=== PATIENT | female | born 1960 | race Caucasian/White ===

== ENCOUNTER 2020-10-03 19:27 | Observation (INO) | payer BC ==
[2020-10-03] MEDS ORDERED: SODIUM CHLORIDE 0.9% 1,000 ML IV STA ×3 (20:08→22:57)
--- NOTE | 2020-10-03 20:19 | ED ---
General Adult HPI - General Chief complaint: Weakness Stated complaint: Weakness Time Seen by Provider: 10/03/20 19:58 Source: patient Mode of arrival: EMS Limitations: no limitations - History of Present Illness Initial comments: This 60-year-old female presents via EMS and sisters present. She apparently had an episode at home a couple hours prior to arrival where she was having altered mental status. She apparently felt very weak and could not stand. She was having some twitching of her left side of her body. Her blood sugar apparently was in the 40s. EMS. She receives some dextrose. Her symptoms have improved at this point time. She stills feels slightly weak. She relates that she has not been eating or drinking fluids much due to her depression. She normally lives in [place] and has been in [place] for the past 3 weeks and [facility] for the past 2 days. She states that the altered atmospheres seems to affect her depression. She denies any severe depression to the point that she is suicidal. She is quite ambiguous in just about every question I ask her and repetitive questioning for the same topic is done continuously with continued ambiguous answering. She relates that she drinks 2-3 glasses of wine 3 days a week. Upon leaving the room, the sister comes up to me and states that she does have a history of a drinking problem and there is empty bottle of vodka in the room when family presented today. Patient denies any drug use. She denies any other medical conditions other than depression. She states that she has had 2 previous episodes where she felt very weak. She only takes an antidepressant medication but denies any other medications. No other identifiable complaints or modifying factors. Patient denies any chest pain, shortness breath, fevers, or chills. - Related Data Home Medications Medication Instructions Recorded Confirmed Citalopram Hydrobromide [CeleXA] 20 mg PO HS 10/03/20 10/03/20 Allergies Allergy/AdvReac Type Severity Reaction Status Date / Time hydrocortisone AdvReac Swelling Verified 10/03/20 21:53 Review of Systems ROS Statement: Those systems with pertinent positive or pertinent negative responses have been documented in the HPI. ROS Other: All systems not noted in ROS Statement are negative. Past Medical History Past Medical History: Asthma, Hypertension, Pneumonia History of Any Multi-Drug Resistant Organisms: None Reported Past Surgical History: Bariatric Surgery Past Psychological History: ADD/ADHD, Anxiety, Depression, PTSD Smoking Status: Former smoker Past Alcohol Use History: Occasional Past Drug Use History: Marijuana General Exam - General Exam Comments Initial Comments: GENERAL: The patient is well nourished and well hydrated. VITAL SIGNS: Heart rate, blood pressure, respiratory rate reviewed as recorded in nurse's notes. EYES: Pupils are round and reactive. Extraocular movements are intact. No conjunctival / lid redness or swelling. ENT: No external evidence of injury, swelling, or ecchymosis. Airway is patent. Throat is clear. NECK: Nontender. No swelling or evidence of injury. No subcutaneous emphysema. Trachea is midline. No thyroid mass. HEART: Regular rate and rhythm. Good peripheral pulses. LUNGS/CHEST: Breath sounds clear and equal bilaterally. No rales, rhonchi, or wheezes. No ecchymosis, subcutaneous emphysema, or tenderness. ABDOMEN: Abdomen soft without tenderness. No palpable masses or organomegaly. No peritoneal signs. No abdominal wall swelling or ecchymosis. EXTREMITIES: No extremity tenderness. Normal muscle tone and function. No thoracolumbar tenderness. NEUROLOGIC: Sensation is grossly intact. Cranial nerve exam reveals face is symmetrical, tongue is midline, speech is clear. SKIN: No abrasions or ecchymosis is noted. No induration or masses noted. PSYCHIATRIC: Alert and oriented. Slight flat affect, somewhat bizarre behavior. Limitations: no limitations Course Vital Signs 10/03/20 10/03/20 19:33 22:55 Temperature 98.8 F Pulse Rate 88 88 Respiratory 18 18 Rate Blood Pressure 122/52 135/80 O2 Sat by Pulse 100 98 Oximetry Medical Decision Making - Medical Decision Making The patient was seen and examined. All diagnostics are reviewed. EKG shows a normal sinus rhythm. There is some mild T-wave flattening diffusely. The MO intervals 168, QRS duration is 96, and the QTC intervals 457. The patient had a computed tomography scan of her brain which did not show any acute abnormalities. Laboratory shows a significant decrease in CO2 at 13. Alcohol is also elevated at 160. There is no definite urinary tract infection. Remainder of labs are unremarkable. It is felt as though she does have acute intoxication. She also has not been eating much and has dehydration. It is felt as though she would benefit from admission and further hydration. She is counseled regarding alcohol use versus abuse as well. She is agreeable to admission. Case is discussed with Dr. Jackson who is agreeable as well. She became nauseated in the ER and receives some Zofran with relief. - Lab Data Result diagrams: 10/03/20 20:46 10/03/20 20:46 Lab Results 10/03/20 10/03/20 10/03/20 Range/Units 20:46 20:46 20:46 WBC 12.2 H (3.8-10.6) k/uL RBC 4.15 (3.80-5.40) m/uL Hgb 15.1 (11.4-16.0) gm/dL Hct 47.0 H (34.0-46.0) % MCV 113.1 H (80.0-100.0) fL MCH 36.4 H (25.0-35.0) pg MCHC 32.2 (31.0-37.0) g/dL RDW 12.5 (11.5-15.5) % Plt Count 321 (150-450) k/uL MPV 8.8 Neutrophils % 88 % Lymphocytes % 7 % Monocytes % 4 % Eosinophils % 0 % Basophils % 0 % Neutrophils # 10.8 H (1.3-7.7) k/uL Lymphocytes # 0.9 L (1.0-4.8) k/uL Monocytes # 0.4 (0-1.0) k/uL Eosinophils # 0.0 (0-0.7) k/uL Basophils # 0.0 (0-0.2) k/uL Manual Slide Review Performed Anisocytosis (manual) Present Macrocytosis Marked A PT 10.7 (9.0-12.0) sec INR 1.0 (<1.2) APTT 18.2 L (22.0-30.0) sec Sodium (137-145) mmol/L Potassium (3.5-5.1) mmol/L Chloride (98-107) mmol/L Carbon Dioxide (22-30) mmol/L Anion Gap mmol/L BUN (7-17) mg/dL Creatinine (0.52-1.04) mg/dL Est GFR (CKD-EPI)AfAm (>60 ml/min/1.73 sqM) Est GFR (CKD-EPI)NonAf (>60 ml/min/1.73 sqM) Glucose (74-99) mg/dL POC Glucose (mg/dL) (75-99) mg/dL POC Glu Plate Grainer ID Calcium (8.4-10.2) mg/dL Phosphorus (2.5-4.5) mg/dL Magnesium (1.6-2.3) mg/dL Total Bilirubin (0.2-1.3) mg/dL AST (14-36) U/L ALT (4-34) U/L Alkaline Phosphatase (38-126) U/L Troponin I (0.000-0.034) ng/mL Total Protein (6.3-8.2) g/dL Albumin (3.5-5.0) g/dL TSH (0.465-4.680) mIU/L Urine Color Yellow Urine Appearance Cloudy H (Clear) Urine pH 5.0 (5.0-8.0) Ur Specific [place] 1.014 (1.001-1.035) Urine Protein Trace H (Negative) Urine Glucose (UA) Negative (Negative) Urine Ketones 3+ H (Negative) Urine Blood Negative (Negative) Urine Nitrite Negative (Negative) Urine Bilirubin Negative (Negative) Urine Urobilinogen <2.0 (<2.0) mg/dL Ur Leukocyte Esterase Small H (Negative) Urine RBC 2 (0-5) /hpf Urine WBC 1 (0-5) /hpf Ur Squamous Epith Cells 20 H (0-4) /hpf Urine Bacteria Rare H (None) /hpf Hyaline Casts 7 H (0-2) /lpf Urine Mucus Few H (None) /hpf Serum Alcohol mg/dL 10/03/20 10/03/20 10/03/20 Range/Units 20:46 20:46 20:54 WBC (3.8-10.6) k/uL RBC (3.80-5.40) m/uL Hgb (11.4-16.0) gm/dL Hct (34.0-46.0) % MCV (80.0-100.0) fL MCH (25.0-35.0) pg MCHC (31.0-37.0) g/dL RDW (11.5-15.5) % Plt Count (150-450) k/uL MPV Neutrophils % % Lymphocytes % % Monocytes % % Eosinophils % % Basophils % % Neutrophils # (1.3-7.7) k/uL Lymphocytes # (1.0-4.8) k/uL Monocytes # (0-1.0) k/uL Eosinophils # (0-0.7) k/uL Basophils # (0-0.2) k/uL Manual Slide Review Anisocytosis (manual) Macrocytosis PT (9.0-12.0) sec INR (<1.2) APTT (22.0-30.0) sec Sodium 143 (137-145) mmol/L Potassium 3.7 (3.5-5.1) mmol/L Chloride 105 (98-107) mmol/L Carbon Dioxide 13 L (22-30) mmol/L Anion Gap 25 mmol/L BUN 7 (7-17) mg/dL Creatinine 0.55 (0.52-1.04) mg/dL Est GFR (CKD-EPI)AfAm >90 (>60 ml/min/1.73 sqM) Est GFR (CKD-EPI)NonAf >90 (>60 ml/min/1.73 sqM) Glucose 128 H (74-99) mg/dL POC Glucose (mg/dL) 120 H (75-99) mg/dL POC Glu Plate Grainer ID Yousuf, Maximo Calcium 8.7 (8.4-10.2) mg/dL Phosphorus 5.2 H (2.5-4.5) mg/dL Magnesium 1.8 (1.6-2.3) mg/dL Total Bilirubin 0.6 (0.2-1.3) mg/dL AST 106 H (14-36) U/L ALT 32 (4-34) U/L Alkaline Phosphatase 108 (38-126) U/L Troponin I <0.012 (0.000-0.034) ng/mL Total Protein 7.0 (6.3-8.2) g/dL Albumin 3.9 (3.5-5.0) g/dL TSH 0.251 L (0.465-4.680) mIU/L Urine Color Urine Appearance (Clear) Urine pH (5.0-8.0) Ur Specific [place] (1.001-1.035) Urine Protein (Negative) Urine Glucose (UA) (Negative) Urine Ketones (Negative) Urine Blood (Negative) Urine Nitrite (Negative) Urine Bilirubin (Negative) Urine Urobilinogen (<2.0) mg/dL Ur Leukocyte Esterase (Negative) Urine RBC (0-5) /hpf Urine WBC (0-5) /hpf Ur Squamous Epith Cells (0-4) /hpf Urine Bacteria (None) /hpf Hyaline Casts (0-2) /lpf Urine Mucus (None) /hpf Serum Alcohol 160 mg/dL Disposition Clinical Impression: Hypoglycemia, Dehydration, Alcohol intoxication, Nausea Disposition: ADMITTED IP TO THIS HOSP Condition: Fair Is patient prescribed a controlled substance at d/c from ED?: No Referrals: None,Stated [Primary Care Provider] - 1-2 days Time of Disposition: 23:15 Decision Date: 10/03/20 Decision Time: 23:15
--- NOTE | 2020-10-03 20:55 | CT ---
EXAMINATION TYPE: CT brain wo con DATE OF EXAM: 10/03/2020 COMPARISON: None HISTORY: Weakness. CT DLP: 1107.4 mGycm Automated exposure control for dose reduction was used. There is mild cerebral atrophy. There is no mass effect nor midline shift. There is no sign of intrac ranial hemorrhage. Calvarium is intact. There is no evidence of cerebral edema. There is normal aerat ion of the mastoid sinuses. IMPRESSION: No acute intracranial abnormality.
[2020-10-03 20:59] LABS: Glucose,Whole Blood 120 mg/dL (75-99)
[2020-10-03 21:25] LABS: ALT 32 U/L (4-34); AST 106 U/L (14-36); African American GFR (CKD) >90 (>60 ml/min/1.73 sqM); Albumin 3.9 g/dL (3.5-5.0); Alkaline Phosphatase 108 U/L (38-126); Anion Gap 25 mmol/L; Blood Urea Nitrogen 7 mg/dL (7-17); Calcium 8.7 mg/dL (8.4-10.2); Carbon Dioxide 13 mmol/L (22-30); Chloride 105 mmol/L (98-107); Glucose 128 mg/dL (74-99); Magnesium 1.8 mg/dL (1.6-2.3); Non-African American GFR(CKD) >90 (>60 ml/min/1.73 sqM); Phosphorus 5.2 mg/dL (2.5-4.5); Potassium 3.7 mmol/L (3.5-5.1); Sodium 143 mmol/L (137-145); Total Bilirubin 0.6 mg/dL (0.2-1.3)
[2020-10-03 21:27] LABS: Appearance,Urine Cloudy (Clear); Bacteria,Urine Rare /hpf; Bilirubin,Urine Negative (Negative); Blood,Urine Negative (Negative); Color,Urine Yellow; Glucose,Urine (UA) Negative (Negative); Hyaline Casts,Urine 7 /lpf (0-2); Ketones,Urine 3+ (Negative); Leukocyte Esterase,Urine Small (Negative); Mucus,Urine Few /hpf; Nitrite,Urine Negative (Negative); Protein,Urine Trace (Negative); RBC,Urine 2 /hpf (0-5); Specific Gravity,Urine 1.014 (1.001-1.035); Squamous Epithelial Cell,Urine 20 /hpf (0-4); Urobilinogen,Urine <2.0 mg/dL (<2.0); WBC,Urine 1 /hpf (0-5)
[2020-10-03 21:28] LABS: Alcohol 160 mg/dL
[2020-10-03 21:32] LABS: Prothrombin Time 10.7 sec (9.0-12.0)
[2020-10-03 22:12] LABS: Basophils % (A) 0 %; Eosinophils % (A) 0 %; HGB 15.1 gm/dL (11.4-16.0); Lymphocytes # (A) 0.9 k/uL (1.0-4.8); Lymphocytes % (A) 7 %; MCH 36.4 pg (25.0-35.0); MCHC 32.2 g/dL (31.0-37.0); MCV 113.1 fL (80.0-100.0); Macrocytosis Marked; Mean Platelet Volume 8.8; Monocytes # (A) 0.4 k/uL (0-1.0); Monocytes % (A) 4 %; Neutrophils # (A) 10.8 k/uL (1.3-7.7); Neutrophils % (A) 88 %; Platelet Count 321 k/uL (150-450); RBC 4.15 m/uL (3.80-5.40); RDW 12.5 % (11.5-15.5); WBC 12.2 k/uL (3.8-10.6)
[2020-10-03 22:15] LABS: Partial Thromboplastin Time 18.2 sec (22.0-30.0)
[2020-10-03] MEDS ORDERED: ONDANSETRON 4 MG/2 ML VIAL IVP STA (22:45)
[2020-10-03 22:56] LABS: Anisocytosis (M) Present
[2020-10-03] MEDS ORDERED: NALOXONE 0.4 MG/ML 1 ML VIAL IV PRN (23:15)
[2020-10-04] MEDS ORDERED: ONDANSETRON 4 MG/2 ML VIAL IVP PRN
[2020-10-04] MEDS ORDERED: ACETAMINOPHEN TAB 325 MG TAB PO PRN
[2020-10-04] MEDS ORDERED: LORazepam 2 MG/ML INJ IV PRN ×3 (00:52)
[2020-10-04] MEDS ORDERED: THIAMINE 100 MG/ML 2 ML VIAL IM STA (00:52)
[2020-10-04 01:33] LABS: Glucose,Whole Blood 154 mg/dL (75-99)
[2020-10-04] MEDS: PANTOPRAZOLE 40 MG/10 ML VIAL IV SCH ×2 (03:12→08:48)
[2020-10-04] MEDS ORDERED: SODIUM CHLORIDE 0.9% 1,000 ML IV SCH (04:15)
[2020-10-04 06:04] LABS: African American GFR (CKD) >90 (>60 ml/min/1.73 sqM); Anion Gap 12 mmol/L; Blood Urea Nitrogen 7 mg/dL (7-17); Calcium 8.1 mg/dL (8.4-10.2); Carbon Dioxide 18 mmol/L (22-30); Chloride 109 mmol/L (98-107); Glucose 77 mg/dL (74-99); Non-African American GFR(CKD) >90 (>60 ml/min/1.73 sqM); Sodium 139 mmol/L (137-145)
[2020-10-04 07:08] LABS: Glucose,Whole Blood 84 mg/dL (75-99)
[2020-10-04 07:54] VITALS: RESP 16
[2020-10-04] MEDS ORDERED: MULTIVITAMINS, THERA 1 EACH TAB PO SCH (09:00)
[2020-10-04] MEDS ORDERED: ENOXAPARIN 40 MG/0.4 ML SYRINGE SQ SCH (09:00)
--- NOTE | 2020-10-04 11:26 | HP ---
HISTORY AND PHYSICAL HISTORY: The patient is a 60-year-old female who apparently had episode prior to arrival where she had some altered mental status. She is very weak with standing. Also had tic on the left side of her body. Blood sugars in the 40s. She was given some dextrose which improved her. She became slightly weak. She states she had not been drinking much due to her depression. She lives in [place], has been in [place] for the past 3 weeks, in [place] for the past 2 days. She has depression. Waiting for suicidal consult at this time. She has a history of a drinking problem with vodka in the morning. Denies any drug abuse. Otherwise she is healthy. Denies chest pain, shortness of breath. MEDICATIONS: Home medicines Celexa 20 daily. ALLERGIES: Negative. REVIEW OF SYSTEMS: A 14 point review of systems otherwise negative. PAST MEDICAL HISTORY: Asthma, hypertension, pneumonia, bariatric surgery, anxiety, depression, ADHD, PTSD, former smoker, occasional alcohol and marijuana. PHYSICAL EXAM: HEENT: Well hydrated. Pupils equal, round, reactive. LUNGS: Clear. CARDIOVASCULAR: S1, S2. HEMATOLOGY: Negative Homans. PSYCH: Flat mood and affect. NEUROLOGIC: Cranial nerves are intact. SKIN: Within normal limits. VITAL SIGNS: Temp 98.8, pulse 80s, respiratory rate 16 to 18, blood pressure 120s to 30s over 80s, O2 of 90 to 100%. EKG shows some mild T-wave flattening. Normal sinus rhythm. CT scan of the brain did not show any acute abnormalities. She had CO2 of 13. Alcohol high at 160. UTI is negative. ASSESSMENT: 1. Acute alcohol intoxication. 2. Depression. PLAN: Psych and neuro consult. [facility] protocol. Resume home medications for depression. Prognosis is guarded. Wait for neuro and psych recommendations for depression and make sure she has no seizures. MMODL / IJN: [id number] /
[2020-10-04 11:41] LABS: Glucose,Whole Blood 144 mg/dL (75-99)
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
--- NOTE | 2020-10-04 15:06 | P.CNNES ---
History of Present Illness Consult date: 10/04/20 Requesting physician: Rodrigo Jackson Reason for Consult: weakness left side History of Present Illness: This is a 60-year-old woman with medical history of hypertension, asthma, depression, anxiety, ADHD, alcohol use who presented emergency department on 10/03/2020 for altered mental status. Some of the history is obtained from ED note. According to the patient that she has been drinking heavily since the COVID- epidemic and try to cut down the 3 different times a in the last 1 year but keeps on rebounding back. She said that she has been binge drinking in the alcohol for the last 3 days, not feeding herself, not hydrating herself. She said that she's been drinking heavily because she was felt depressed. Denies any suicidal or homicidal thoughts or plans. So yesterday as she stated that that she was having generalized weakness and felt her left legs were not support her as a result. She denies of any lower back pain, urinary or bladder incontinence, denies of any focal weakness, any numbness that's localize, visual disturbance, difficulty getting her words out or swallowing. She felt like she had a headache over the left frontal region it was in that again as felt nauseous as well as vomiting. Again she denies any photophobia photophobia with this ringing in the ears or hearing loss. She says that today her headache is 1-2/10. She does have history of migraine and she said that her migraines are controlled she resides in [place]. She feels that the change of whether in the region exacerbates her headache. Per the ED note they mentioned that the patient complained of focal weakness over the left side as well as twitching which she denied to me. EMS was contacted yesterday and the her sugars was in the 40s when they checked and they given dextrose and the she felt much better. Patient resides in [place] and has been in [place] for the last 3 weeks and [place] the last 2 days. She drinks 2-3 glasses of wine 3 days out of the week. Per the ED notes it is mentioned that upon leaving the room the sister came up to the ED physician and stated that the patient has a history of drinking problem and there is empty bottle of vodka in the room when the family presented today. Patient denies off history of stroke, TIAs. Denies history of seizures. She feels like she is depressed because she lost her mother to COVID and loss her friend. Patient home medication is Celexa. Some of the workup in the hospital consisted of: Initial vital signs is blood pressure of 122/52, heart rate of 88, temperature of 98.8 Fahrenheit orally, respiratory of 18, pulse ox of 100% room air. Since the patient has been the hospital she didn't afebrile. CBC with differential is initial white blood cell is 12.2 which is slightly elevated. Patient MCV is 113 hematocrit is 36.4 which are elevated. Chemistry panel is a phosphorus is 5.2 which is mildly elevated. AST of 106 which is elevated and ALT is 32 which is considered within normal limits. Otherwise the calcium is 8.7 and the rest of the basic chemistry panel is within normal limits. 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 CT of the head is reported as no acute intracranial abnormality. EKG is reported as normal sinus rhythm. Nonspecific T wave abnormality. Abnormal EKG. Per the patient's nurse she has not noticed any focal weakness. Review of Systems Review of system: The 12 point system was reviewed and apparent positive and negative per HPI. Past Medical History Past Medical History: Asthma, Hypertension, Pneumonia History of Any Multi-Drug Resistant Organisms: None Reported Past Surgical History: Bariatric Surgery Past Psychological History: ADD/ADHD, Anxiety, Depression, PTSD Smoking Status: Former smoker Past Alcohol Use History: Occasional Additional Past Alcohol Use History / Comment(s): Pt has serum ETOH of 160 upon admission; states she only drinks on the weekends, about 4 drinks Past Drug Use History: Marijuana Additional Drug Use History / Comment(s): States she smokes 1 hit 3-4 days a week for anxiety Medications and Allergies Home Medications Medication Instructions Recorded Confirmed Type Citalopram Hydrobromide [CeleXA] 20 mg PO HS 10/03/20 10/03/20 History Allergies Allergy/AdvReac Type Severity Reaction Status Date / Time hydrocortisone AdvReac Swelling Verified 10/03/20 21:53 Physical Examination - Vital Signs Vital Signs: Vital Signs Temp Pulse Pulse Resp BP BP BP 10/04/20 07:00 98.5 F 98 16 127/75 10/04/20 03:24 18 10/04/20 00:41 97.7 F 18 147/81 10/03/20 22:55 88 18 135/80 10/03/20 19:33 98.8 F 88 18 122/52 Pulse Ox 10/04/20 07:00 97 10/04/20 03:24 10/04/20 00:41 99 10/03/20 22:55 98 10/03/20 19:33 100 Intake and Output 10/03/20 10/04/20 10/04/20 22:59 06:59 14:59 Intake Total 2820 Balance 2820 Intake: Intake, IV Titration 2280 Amount Sodium Chloride 0.9% 1, 130 000 ml @ 130 mls/hr IV . Q7H42M STA Rx#:[id number] Sodium Chloride 0.9% 1, 150 000 ml @ 75 mls/hr IV . [id number] ADRIANNA Rx#:[id number] Sodium Chloride 0.9% 1, 1000 000 ml @ 999 mls/hr IV . Q1H1M STA Rx#:[id number] Sodium Chloride 0.9% 1, 1000 000 ml @ 999 mls/hr IV . Q1H1M STA Rx#:[id number] Oral 540 Other: # Voids 3 Weight 68.946 kg 68.946 kg GENERAL: The patient is lying in bed and is not in acute distress. CHEST: The heart rate is regular rate rhythm. No murmurs to auscultation. No carotid bruit bilaterally. LUNG: Clear to auscultation bilaterally no wheezing noted throughout. Not labored breathing. ABDOMEN/GI: Bowel sounds present in all 4 quadrants. No tenderness to palpation throughout. NEUROLOGICAL: Higher mental function: The patient is awake, alert, oriented to self, place and time. Patient is following commands. No aphasia and no neglect. Cranial nerves: The pupils are round, equal and reactive to light and accommodation. Visual ennis are full to confrontation throughout. Extraocular movement is intact no nystagmus is noted. Facial sensation is normal to touch throughout. The facial strength is normal throughout. Hearing is normal bilaterally to hand rub. Tongue is midline and moved [id number] without any difficulty. No dysarthria is noted. Shoulder shrug is normal bilaterally. Motor: Gait is normal with normal arm swing. The strength is 5 over 5 throu ghout. Normal tone and bulk. Cerebellum: Normal finger to nose heel to garcia bilaterally. Sensation: Sensation is normal to touch throughout. Reflexes (right/left): 2+ throughout. Plantars are downgoing bilaterally. Results - Laboratory Findings CBC and BMP: 10/03/20 20:46 10/04/20 05:03 Abnormal Lab Findings: Abnormal Labs 10/03/20 10/03/20 10/03/20 20:46 20:46 20:46 WBC 12.2 H Hct 47.0 H MCV 113.1 H MCH 36.4 H Neutrophils # 10.8 H Lymphocytes # 0.9 L Macrocytosis Marked A APTT 18.2 L Chloride Carbon Dioxide Creatinine Glucose POC Glucose (mg/dL) Calcium Phosphorus AST TSH Urine Appearance Cloudy H Urine Protein Trace H Urine Ketones 3+ H Ur Leukocyte Esterase Small H Ur Squamous Epith Cells 20 H Urine Bacteria Rare H Hyaline Casts 7 H Urine Mucus Few H 10/03/20 10/03/20 10/04/20 20:46 20:54 01:32 WBC Hct MCV MCH Neutrophils # Lymphocytes # Macrocytosis APTT Chloride Carbon Dioxide 13 L Creatinine Glucose 128 H POC Glucose (mg/dL) 120 H 154 H Calcium Phosphorus 5.2 H AST 106 H TSH 0.251 L Urine Appearance Urine Protein Urine Ketones Ur Leukocyte Esterase Ur Squamous Epith Cells Urine Bacteria Hyaline Casts Urine Mucus 10/04/20 10/04/20 05:03 11:39 WBC Hct MCV MCH Neutrophils # Lymphocytes # Macrocytosis APTT Chloride 109 H Carbon Dioxide 18 L Creatinine 0.48 L Glucose POC Glucose (mg/dL) 144 H Calcium 8.1 L Phosphorus AST TSH Urine Appearance Urine Protein Urine Ketones Ur Leukocyte Esterase Ur Squamous Epith Cells Urine Bacteria Hyaline Casts Urine Mucus Assessment and Plan Assessment: Altered mental status seems due to toxic encephalopathy (alcohol level of 160). Also component metabolic encephalopathy ---mentation improves Generalized weakness due to alcohol intoxication, low sugar (40) due to malnutrition. Denies focal weakness or twitching to me. Her symptoms resolved after getting dextrose.---on examination has no focality. Alcohol use (binge drinking for the past 3 days) Depression History of Hypertension Anxiety Plan: Continue Thiamine 100mg 1 tab bid. Recommend getting the free T4 and we'll defer the thyroid abnormality to the primary team. On [facility] protocol and will defer management to primary team. Psychiatry team is consulted. She was notified if she has any focal weakness or numbness to come to the ED and follow-up with a neurologist as an outpatient. She was counseled on alcohol cessation. We'll defer the rest of medical management to primary team. Patient wants to leave home. From a neurological perspective there is no further workup needed. Thank you for the consultation. Rafa Manzanares MD Neuro-Hospitalist Time with Patient: Greater than 30
[2020-10-04 15:09] VITALS: BP 157/82; PULSE 90; TEMP 98.6
[2020-10-04] MEDS ORDERED: THIAMINE 100 MG TAB PO SCH (17:30)
[2020-10-04] MEDS ORDERED: MIRTAZAPINE 15 MG TAB PO SCH (21:00)
[2020-10-04] MEDS ORDERED: CITALOPRAM HYDROBROMIDE 20 MG TAB PO SCH (21:00)
--- NOTE | 2020-10-22 19:55 | DS ---
DISCHARGE SUMMARY DATE OF ADMISSION: 10/03/2020 DATE OF DISCHARGE: October 04, 2020. MEDICINES: Celexa 20 mg daily. Remeron 50 mg daily. The patient came in the hospital for weakness on the left side. History of hypertension, asthma, depression, anxiety, ADHD, alcohol use, came with alcohol withdrawal. Placed on CIWA protocol. Seen by Psychiatry as well as Neurology. Labs were reviewed. Neurology and psychiatry saw her and placed her on CIWA protocol at which time she improved from medical standpoint. She had toxic encephalopathy due to alcohol level 160, metabolic encephalopathy with mentation improved, depression, hypertension, anxiety, stabilized to follow up as an outpatient. Cleared by neurology and psych on discharge. MMODL / IJN: [id number] /
== END 2020-10-04 17:33 | disposition home or self-care (01) ==
LOC: EC 19:27 → 6NMEDSUR 23:15
PROVIDERS: ADMIT Family Medicine; ATTEND Family Medicine
DX: F10.129 Alcohol abuse with intoxication, unspecified (principal); F32.9 Major depressive disorder, single episode, unspecified; E86.0 Dehydration; E16.2 Hypoglycemia, unspecified; R25.3 Fasciculation; Z20.822 Contact with and (suspected) exposure to COVID-19; I10 Essential (primary) hypertension; J45.909 Unspecified asthma, uncomplicated; F43.10 Post-traumatic stress disorder, unspecified; Y90.6 Blood alcohol level of 120-199 mg/100 ml; F12.90 Cannabis use, unspecified, uncomplicated; F90.9 Attention-deficit hyperactivity disorder, unspecified type; Z88.8 Allergy status to other drugs, medicaments and biological substances; Z86.69 Personal history of other diseases of the nervous system and sense organs; Z87.01 Personal history of pneumonia (recurrent); Z87.891 Personal history of nicotine dependence; Z98.84 Bariatric surgery status
CPT/HCPCS: 96376; 96372; 96375; 96361; 96374; 99285; 36415; 93005; 80053; 80048; 83735; 84100; 84443; 84484; 85025; 85610; 85730; 81001; 80320; 86769; 70450; G0378 ×2; J2060; J3411; J2405 ×2; J1650; C9113

== ENCOUNTER 2024-04-10 22:26 | Emergency (ER) | payer BC ==
[2024-04-10 22:37] VITALS: RESP 16; TEMP 97.4
--- NOTE | 2024-04-10 22:56 | ED ---
General Adult HPI - General Chief complaint: Fall Stated complaint: Fall Time Seen by Provider: 04/10/24 22:27 Source: patient, EMS, RN notes reviewed Mode of arrival: EMS - History of Present Illness Initial comments: 63-year-old female presents to the emergency department for evaluation of fall. Patient reports that she had too many alcoholic beverages at [facility]. She states that she had 3 alcoholic beverages on an empty stomach. She states that she took a fall. She states that she does not quite remember what happened but does not believe she lost consciousness. - Related Data Home Medications Medication Instructions Recorded Confirmed Citalopram Hydrobromide [CeleXA] 20 mg PO HS 10/03/20 10/03/20 Previous Rx's Medication Instructions Recorded Mirtazapine [Remeron] 15 mg PO HS 30 Days #30 tab 10/04/20 Allergies Allergy/AdvReac Type Severity Reaction Status Date / Time hydrocortisone AdvReac Swelling Verified 04/10/24 22:36 Review of Systems ROS Statement: Those systems with pertinent positive or pertinent negative responses have been documented in the HPI. ROS Other: All systems not noted in ROS Statement are negative. Past Medical History Past Medical History: Asthma, Hypertension, Pneumonia History of Any Multi-Drug Resistant Organisms: None Reported Past Surgical History: Bariatric Surgery Past Psychological History: ADD/ADHD, Anxiety, Depression, PTSD Smoking Status: Former smoker Past Alcohol Use History: Occasional Past Drug Use History: Marijuana General Exam Limitations: no limitations General appearance: alert, in no apparent distress Head exam: Present: atraumatic, normocephalic, normal inspection Eye exam: Present: normal appearance, PERRL, EOMI. Absent: scleral icterus, conjunctival injection, periorbital swelling ENT exam: Present: normal exam, mucous membranes moist Neck exam: Present: normal inspection. Absent: tenderness, meningismus, lymphadenopathy Respiratory exam: Present: normal lung sounds bilaterally. Absent: respiratory distress, wheezes, rales, rhonchi, stridor Cardiovascular Exam: Present: regular rate, normal rhythm, normal heart sounds. Absent: systolic murmur, diastolic murmur, rubs, gallop, clicks GI/Abdominal exam: Present: soft. Absent: distended, tenderness, guarding, rebound, rigid Extremities exam: Present: normal inspection, full ROM, normal capillary refill. Absent: tenderness, pedal edema, joint swelling, calf tenderness Back exam: Present: normal inspection Neurological exam: Present: alert, oriented X3 Psychiatric exam: Present: normal affect, normal mood Skin exam: Present: warm, dry, intact, normal color. Absent: rash Course Vital Signs 04/10/24 22:28 Temperature 97.4 F L Pulse Rate 66 Respiratory 16 Rate Blood Pressure 116/56 O2 Sat by Pulse 99 Oximetry Medical Decision Making - Medical Decision Making Was pt. sent in by a medical professional or institution ([facility], [facility], urgent care, hospital, or prison...) When possible be specific @ -[No] Did you speak to anyone other than the patient for history (EMS, parent, family, police, friend...)? What history was obtained from this source @ -[No] Did you review nursing and triage notes (agree or disagree)? Why? @ -[I reviewed and agree with nursing and triage notes] Were old charts reviewed (outside hosp., previous admission, EMS record, old EKG, old radiological studies, urgent care reports/EKG's, prison records)? Report findings @ -[No old charts were reviewed] Differential Diagnosis (chest pain, altered mental status, abdominal pain women, abdominal pain men, vaginal bleeding, weakness, fever, dyspnea, syncope, headache, dizziness, GI bleed, back pain, seizure, CVA, palpatations, mental health, musculoskeletal)? @ -[fall, head injury, intracranial hemorrhage, cervical spine fracture, this list is not all inclusive] EKG interpreted by me (3pts min.). @ -[none] X-rays interpreted by me (1pt min.). @ -[None done] CT interpreted by me (1pt min.). @ -[CT brain and C spine shows no acute process] U/S interpreted by me (1pt. min.). @ -[None done] What testing was considered but not performed or refused? (CT, X-rays, U/S, labs)? Why? @ -[None] What meds were considered but not given or refused? Why? @ -[None] Did you discuss the management of the patient with other professionals (professionals i.e. [facility], [facility], lab, RT, psych nurse, school social worker, bi data modeler, teacher, aeronautical engineering officer, case loader operator)? Give summary @ -[No] Was smoking cessation discussed for >3mins.? @ -[No] Was critical care preformed (if so, how long)? @ -[No] Were there social determinants of health that impacted care today? How? (Homelessness, low income, unemployed, alcoholism, drug addiction, transportation, low edu. Level, literacy, decrease access to med. care, senior living, rehab)? @ -[No] Was there de-escalation of care discussed even if they declined (Discuss DNR or withdrawal of care, Hospice)? DNR status @ -[No] What co-morbidities impacted this encounter? (DM, HTN, Smoking, COPD, CAD, Cancer, CVA, ARF, Chemo, Hep., AIDS, mental health diagnosis, sleep apnea, morbid obesity)? @ -[None] Was patient admitted / discharged? Hospital course, mention meds given and route, prescriptions, significant lab abnormalities, going to OR and other pertinent info. @ -[discharged. Patient presented via EMS for fall at restaurant today after drinking too many alcoholic beverages. BAT 0.2. CT brain and C-spine was obtained revealing no acute process. Laboratory studies including CBC, CMP nonactionable at this time. Patient remained in the ED until sober] Undiagnosed new problem with uncertain prognosis? @ -[No] Drug Therapy requiring intensive monitoring for toxicity (Heparin, Nitro, Insulin, Cardizem)? @ -[No] Were any procedures done? @ -[No] Diagnosis/symptom? @ -[fall, alcohol intoxication] Acute, or Chronic, or Acute on Chronic? @ -acute Uncomplicated (without systemic symptoms) or Complicated (systemic symptoms)? @ -uncomplicated Side effects of treatment? @ -[No] Exacerbation, Progression, or Severe Exacerbation? @ -[No] Poses a threat to life or bodily function? How? (Chest pain, USA, ID, pneumonia, PE, COPD, DKA, ARF, appy, cholecystitis, CVA, Diverticulitis, Homicidal, Suicidal, threat to staff... and all critical care pts) @ -[No] - Lab Data Result diagrams: 04/10/24 22:33 04/10/24 22:33 Lab Results 04/10/24 04/10/24 Range/Units 22:33 22:33 WBC 3.8 (3.8-10.6) k/uL RBC 4.18 (3.80-5.40) m/uL Hgb 14.4 (11.4-16.0) gm/dL Hct 42.5 (34.0-46.0) % MCV 101.9 H (80.0-100.0) fL MCH 34.5 (25.0-35.0) pg MCHC 33.8 (31.0-37.0) g/dL RDW 12.4 (11.5-15.5) % Plt Count 130 L (150-450) k/uL MPV 9.0 Neutrophils % 39 % Lymphocytes % 48 % Monocytes % 8 % Eosinophils % 2 % Basophils % 0 % Neutrophils # 1.5 (1.3-7.7) k/uL Lymphocytes # 1.8 (1.0-4.8) k/uL Monocytes # 0.3 (0-1.0) k/uL Eosinophils # 0.1 (0-0.7) k/uL Basophils # 0.0 (0-0.2) k/uL Sodium 137 (137-145) mmol/L Potassium 4.4 (3.5-5.1) mmol/L Chloride 101 (98-107) mmol/L Carbon Dioxide 23 (22-30) mmol/L Anion Gap 13 mmol/L BUN 5 L (7-17) mg/dL Creatinine 0.64 (0.52-1.04) mg/dL Est GFR (CKD-EPI)AfAm >90 (>60 ml/min/1.73 sqM) Est GFR (CKD-EPI)NonAf >90 (>60 ml/min/1.73 sqM) Glucose 90 (74-99) mg/dL Calcium 9.2 (8.4-10.2) mg/dL Total Bilirubin 0.6 (0.2-1.3) mg/dL AST 25 (14-36) U/L ALT 10 (4-34) U/L Alkaline Phosphatase 56 (38-126) U/L Total Protein 7.3 (6.3-8.2) g/dL Albumin 4.0 (3.5-5.0) g/dL Disposition Clinical Impression: Fall, Alcohol intoxication Disposition: HOME SELF-CARE Condition: Stable Instructions (If sedation given, give patient instructions): Fall Prevention (ED) Additional Instructions: Please follow up with your primary care provider. Return to the emergency department for new or worsening symptoms. Is patient prescribed a controlled substance at d/c from ED?: No Referrals: None,Stated [Primary Care Provider] - 1-2 days
[2024-04-10 23:11] LABS: Basophils % (A) 0 %; Eosinophils # (A) 0.1 k/uL (0-0.7); Eosinophils % (A) 2 %; HCT 42.5 % (34.0-46.0); HGB 14.4 gm/dL (11.4-16.0); Lymphocytes # (A) 1.8 k/uL (1.0-4.8); Lymphocytes % (A) 48 %; MCH 34.5 pg (25.0-35.0); MCHC 33.8 g/dL (31.0-37.0); MCV 101.9 fL (80.0-100.0); Monocytes # (A) 0.3 k/uL (0-1.0); Monocytes % (A) 8 %; Neutrophils # (A) 1.5 k/uL (1.3-7.7); Neutrophils % (A) 39 %; Platelet Count 130 k/uL (150-450); RBC 4.18 m/uL (3.80-5.40); RDW 12.4 % (11.5-15.5); WBC 3.8 k/uL (3.8-10.6)
[2024-04-10 23:18] LABS: ALT 10 U/L (4-34); African American GFR (CKD) >90 (>60 ml/min/1.73 sqM); Anion Gap 13 mmol/L; Blood Urea Nitrogen 5 mg/dL (7-17); Calcium 9.2 mg/dL (8.4-10.2); Carbon Dioxide 23 mmol/L (22-30); Chloride 101 mmol/L (98-107); Glucose 90 mg/dL (74-99); Non-African American GFR(CKD) >90 (>60 ml/min/1.73 sqM); Sodium 137 mmol/L (137-145); Total Bilirubin 0.6 mg/dL (0.2-1.3); Total Protein 7.3 g/dL (6.3-8.2)
[2024-04-10 23:25] LABS: AST 25 U/L (14-36); Alkaline Phosphatase 56 U/L (38-126); Potassium 4.4 mmol/L (3.5-5.1)
--- NOTE | 2024-04-11 00:17 | CT ---
EXAM: CT Head Without Intravenous Contrast CLINICAL HISTORY: ITS.REASON CT Reason: fall, hit head TECHNIQUE: Axial computed tomography images of the head/brain without intravenous contrast. CTDI is 45.3 mGy and DLP is 1051 mGy-cm. This CT exam was performed using one or more of the following dose reduction techniques: automated exposure control, adjustment of the mA and/or kV according to patient size, and/or use of iterative reconstruction technique. COMPARISON: No relevant prior studies available. FINDINGS: Brain: Unremarkable. No hemorrhage. No significant white matter disease. No edema. Ventricles: No acute findings. No ventriculomegaly. Bones/joints: Unremarkable. No acute fracture. Soft tissues: Unremarkable. Sinuses: Unremarkable as visualized. No acute sinusitis. Mastoid air cells: Unremarkable as visualized. No mastoid effusion. IMPRESSION: No acute intracranial pathology. EXAM: CT Cervical Spine Without Intravenous Contrast CLINICAL HISTORY: ITS.REASON CT Reason: fall, hit head TECHNIQUE: Axial computed tomography images of the cervical spine without intravenous contrast. CTDI is 10.3 mGy and DLP is 324 mGy-cm. This CT exam was performed using one or more of the following dose reduction techniques: automated exposure control, adjustment of the mA and/or kV according to patient size, and/or use of iterative reconstruction technique. COMPARISON: No relevant prior studies available. FINDINGS: Vertebrae: Cervical degenerative disc disease and facet arthropathy. Discs/spinal canal/neural foramina: Disc osteophyte complexes result in mild to moderate degrees of spinal canal stenosis. Minimal grade 1 anterolisthesis of C4 on C5. Severe degenerative changes left temporomandibular joint. Soft tissues: No acute findings. IMPRESSION: No fracture or traumatic malalignment.
[2024-04-11 06:05] VITALS: BP 140/85; PULSE 95
== END 2024-04-11 06:05 | disposition home or self-care (01) ==
LOC: EC 22:26
DX: F10.129 Alcohol abuse with intoxication, unspecified (principal); Z87.891 Personal history of nicotine dependence; Z88.8 Allergy status to other drugs, medicaments and biological substances; W19.XXXA Unspecified fall, initial encounter
CPT/HCPCS: 36415; 70450; 72125; 80053; 85025; 93005; 99284